=== PATIENT | male | born 1955 | race African-American/Black ===

== ENCOUNTER 2016-11-15 13:01 | Inpatient (IN) | payer OTHER ==
[~2016-11-15] VITALS: Ht 170.1 cm; Wt 77.3 kg
--- NOTE | ~2016-11-15 | CON ---
[place], [place] REPORT OF CONSULTATION NAME: [facility]ER [facility]Z [id number] UNIT #: [id number] ROOM: 403 DOCTOR: TOM NATH MD BIRTHDATE: [birth year] DOS: 11/15/2016 CARDIOLOGY CONSULTATION REASON FOR CONSULTATION: Atypical chest pain. HISTORY OF PRESENT ILLNESS: The patient is a 61-year-old man who has not had much medical care recently. He states that he has had some "bad interactions" with doctors. He does admit that he has a psychiatric doctor, although he did not give me the name. The patient states that for the last 3-4 months, he has had elevated blood pressure. He states that his blood pressure is anywhere from 140-180 when it is measured. He has never actually been diagnosed as having hypertension and has not received any treatment for it. The patient states that he is not sure if he has ever had heart disease since he does not know "what it feels like." He does not know if he has ever had a stroke for similar reasons. His only medication is diazepam. The patient states that lately he has had what he refers to as "air burst" which he describes as a pressure pain in his shoulder, left arm and neck. This comes without warning, lasts several minutes and then resolves spontaneously. When this happens, his arm feels numb and he is unable to hold things in his left hand. It is not associated with diaphoresis, dyspnea, lightheadedness, syncope, or chest pain. He also describes episodes of heaviness and tightness in his left chest. Once again, these come without warning and resolves spontaneously. They are not associated with pleuritic chest pain, dyspnea or diaphoresis. They resolves spontaneously. The patient states that his symptoms became too severe for him to stand and therefore he came to Emergency Room today. He has had several episodes in the Emergency Room, but not has been persistent. His electrocardiogram and first set of cardiac biomarkers are all normal. PAST MEDICAL HISTORY: Include anxiety, marijuana abuse and tobacco abuse. His only surgery was a right inguinal hernia repair. REVIEW OF SYSTEMS: The patient denies diplopia or loss of vision. He does admit to focal left arm weakness when he has the pain. Between pains, his arm is normally strong. He denies any lightheadedness or syncope. He denies orthopnea or PND. He denies fevers or chills. He does have a chronic cough and states that his chest hurts more when he is coughing. He denies any productive cough, hemoptysis or hematemesis. He denies nausea or vomiting. He denies change in bowel or bladder habits. He denies blood in his stools or urine. He denies heat or cold intolerance. He denies polydipsia or polyuria. He denies any hot or swollen joints. He denies any new skin rashes. The remainder of the review of systems is negative except as noted above. FAMILY HISTORY: The patient's father was estranged, the patient believes he of a lung problem. His mother after she was hit by a train. The [place], [place] REPORT OF CONSULTATION NAME: PETER PEREZ UNIT #: [id number] ROOM: [facility] DOCTOR: TOM NATH MD BIRTHDATE: [birth year] patient has several half brothers and sisters and does not think that any of them has any illnesses. SOCIAL HISTORY: The patient does not drink alcohol. He smokes 1-1/2 to 2 packs of cigarettes a day. He uses marijuana on a daily basis. CURRENT MEDICATIONS: Diazepam p.r.n. ALLERGIES: He lists allergies to no medications or foods. PHYSICAL EXAMINATION: GENERAL: The patient is a slender -[place] man who looks much older than his stated age. VITAL SIGNS: Pulse is 62 and regular, blood pressure was 148/94. He was afebrile. He weighed 77.3 kg and had a body mass index 26.7. HEENT: Head is normocephalic, atraumatic. Extraocular muscles are intact. Sclerae are clear. Pupils are equal, round and reactive to light. The oral mucosa is moist. Tongue is midline. NECK: Supple. He has no jugular distention. Carotids are full. I heard no bruits. He had no neck or supraclavicular masses and no thyromegaly. LUNGS: Respirations are unlabored. His chest is clear to auscultation and percussion. He has no presacral edema or chest wall masses. His left anterior chest is tender to palpation, but this does not reproduce his presenting chest pains. CARDIOVASCULAR: The patient's heart has a regular rhythm with a soft S4 gallop, but no S3 or murmur. The PMI is not displaced. There is no precordial heave, lift or thrill. ABDOMEN: Soft and normally active without masses, organomegaly or bruits. EXTREMITIES: Showed no clubbing, cyanosis or edema. Peripheral pulses are diminished in the feet. Pulses are normal in the arms. LABORATORY DATA: I reviewed his electrocardiogram, which showed sinus rhythm with possible left atrial enlargement, but was otherwise normal tracing. Initial cardiac biomarkers were normal. Hemoglobin is 15.6 with hematocrit of 46.9, there are 5900 white cells and 204,000 platelets. IMPRESSION: 1. Atypical chest pain. The patient describes several different kinds of chest pain which seemed to be mechanical in origin. His left anterior chest is tender to palpation. The pains are fairly brief and are not exertional. On the other hand, he does have risk factors including a heavy cigarette history. 2. Tobacco and marijuana abuse. 3. Elevated blood pressure. PLAN: The patient has been admitted to a telemetry monitored unit. We will follow serial CKs and MBs along with his troponins. We will keep him on a financial services director overnight. If he has no objective evidence for coronary ischemia, we will plan on an exercise myocardial perfusion study within the next 24 hours. In addition, we will order an echocardiogram to assess end-organ damage from his hypertension. Once this information has been collected, we will [place], [place] REPORT OF CONSULTATION NAME: PETER PEREZ UNIT #: [id number] ROOM: 403 DOCTOR: TOM NATH MD BIRTHDATE: [birth year] probably treat him with a low-dose diuretic or CLARISSA inhibitor. We thank the hospitalist physicians for asking our advice regarding his care. TOM NATH MD CM:CONSTR:REPORT OF CONSULTATION 1731 11/16/16 1238 interface
--- NOTE | ~2016-11-15 | ST ---
[place], [place] EXERCISE STRESS TEST REPORT NAME: [id number] UNIT #: [id number] ROOM: 403 DOCTOR: TOM NATH MD BIRTHDATE: [birth year] DOS: 11/16/2016 INDICATIONS: Left arm pain and atypical chest pain. PROCEDURE: The patient was given a rapid infusion of regadenoson 0.4 mg intravenously followed by a saline flush. He described an odd sensation throughout his entire body. His resting electrocardiogram showed sinus rhythm with poor precordial R-wave progression and anterior T-wave inversion. No further changes occurred with the infusion. His resting heart rate of 58 amarilys to 101. The resting blood pressure of 144/86 fell to 136/90. After the infusion of regadenoson, he was given radionuclide intravenously. IMPRESSION: 1. Well tolerated infusion of regadenoson. 2. Radionuclide administered. Please see the separately dictated imaging report for further details of the patient's stress test results. TOM NATH MD CM:STRESS:EXERCISE STRESS TEST REPORT [id number] TOM NATH MD
--- NOTE | ~2016-11-15 | PR ---
[place], [place] PROGRESS NOTE NAME: PETER PEREZ UNIT #: [id number] ROOM: 403 DOCTOR: TOM NATH MD BIRTHDATE: [birth year] DOS: 11/16/2016 CARDIOLOGY PROGRESS NOTE SUBJECTIVE: The patient was seen at the Cardiology Department just prior to his pharmacologic stress test. When he arrived in the department, he seemed a bit unsteady on his feet. In order to maximize the patient's safety, his stress test is being changed from a walking test to a pharmacologic stress test. He still has the same arm pain that he described to me when I saw him last evening. PHYSICAL EXAMINATION: On exam today, VITAL SIGNS: His pulse is 58 and regular, blood pressure is 144/86. NECK: Supple. CHEST: Respirations are unlabored. Chest is clear to auscultation and percussion. HEART: Heart has a regular rhythm with a fourth heart sound, but no third heart sound. EXTREMITIES: Showed no edema. His electrocardiogram today shows sinus rhythm with poor precordial R-wave progression, but is otherwise normal tracing. CBC is normal. Electrolytes are unremarkable. Hemoglobin A1c is normal at 5.0. TSH is normal. Cardiac biomarkers are negative. IMPRESSION: 1. Atypical chest pain. Thus far, the patient has no objective signs of coronary artery disease. 2. History of tobacco and marijuana abuse. 3. Elevated blood pressure. PLAN: We will proceed with a pharmacologic stress test today. Further recommendations will depend upon the results of the stress test. We thank the hospitalist group for asking our advice regarding his care. [place], [place] PROGRESS NOTE NAME: PETER PEREZ UNIT #: [id number] ROOM: 403 DOCTOR: TOM NATH MD BIRTHDATE: [birth year] TOM NATH MD CM:PNTRANS [id number] 0051 TOM NATH MD 11/17/16 0050 interface
[~2016-11-15 13:01] MED LIST: CLEOCIN150 MG PO; HYDROCODONE BIT1 T11 PO
[2016-11-15 13:08] VITALS: BP 190/110
[2016-11-15] MEDS ORDERED: VALIUM5 MG PO (13:08)
[2016-11-15 13:39] LABS: BASO % 0.7 % (0.0-1.0); EOS # 0.1 10*3/uL (0.0-0.4); EOS % 1.4 % (1.0-4.0); HEMATOCRIT 46.9 % (42.0-52.0); HEMOGLOBIN 15.6 g/dl (14.0-18.0); LYMPH # 2.5 10*3/uL (1.3-4.4); LYMPH % 42.6 % (27.0-41.0); MEAN CELL VOLUME 98.5 fl (80.0-94.0); MEAN CORPUSCULAR HGB 32.8 pg (27.0-31.0); MEAN CORPUSCULAR HGB CONC 33.3 g/dl (33.0-37.0); MEAN PLATELET VOLUME 10.7 fl (9.6-12.3); MONO # 0.5 10*3/uL (0.1-1.0); MONO % 8.7 % (3.0-9.0); NEUT # 2.7 10*3/uL (2.3-7.9); NEUT % 46.4 % (47.0-73.0); PLATELET COUNT AUTOMATED 204 10*3/uL (130-400); RED BLOOD COUNT 4.76 10*6/uL (4.50-5.90); WHITE BLOOD COUNT 5.9 10*3/uL (4.8-10.8)
[2016-11-15 13:43] VITALS: BP 147/104
[2016-11-15 13:48] LABS: PROTHROMBIN TIME 10.3 SECONDS (9.0-12.4)
[2016-11-15 13:57] LABS: ALKALINE PHOSPHATASE 68 U/L (45-117); BILIRUBIN, TOTAL 0.6 mg/dl (0.2-1.0); BUN 13 mg/dl (7-24); CARBON DIOXIDE 25 mmol/L (21-32); CHLORIDE 108 mmol/L (98-107); EST GLOM FILT AFRICAN AMERICAN > 60 ml/min; GLUCOSE 129 mg/dL (65-99); MAGNESIUM 2.1 mg/dL (1.5-2.1); POTASSIUM 3.5 mmol/L (3.5-5.1); SGOT/AST 15 IU/L (3-35); SGPT/ALT 22 U/L (12-78); SODIUM 144 mmol/L (136-145)
[2016-11-15 14:03] LABS: TROPONIN I < 0.015 ng/ml (<0.5)
[2016-11-15 14:32] VITALS: BP 158/103
[2016-11-15 15:47] VITALS: BP 146/103
[2016-11-15 16:15] VITALS: BP 148/94
[2016-11-15 20:00] VITALS: BP 151/98
[2016-11-16] VITALS: BP 148/90; BP 151/94
[2016-11-16] MEDS ORDERED: DIAZEPAM5 MG PO (03:49)
[2016-11-16] MEDS ORDERED: SERTRALINE HYD100 MG PO (03:50)
[2016-11-16] MEDS ORDERED: HYDROXYZINE PAM25 MG PO (03:51)
[2016-11-16] MEDS ORDERED: ARIPIPRAZOLE20 MG PO (03:51)
[2016-11-16] MEDS ORDERED: CLONIDINE HCL0.2 MG PO (03:52)
[2016-11-16 06:44] LABS: BASO % 0.4 % (0.0-1.0); EOS # 0.1 10*3/uL (0.0-0.4); EOS % 2.3 % (1.0-4.0); HEMATOCRIT 47.9 % (42.0-52.0); HEMOGLOBIN 15.8 g/dl (14.0-18.0); LYMPH % 41.6 % (27.0-41.0); MEAN CORPUSCULAR HGB 32.6 pg (27.0-31.0); MEAN PLATELET VOLUME 10.2 fl (9.6-12.3); MONO # 0.5 10*3/uL (0.1-1.0); MONO % 9.5 % (3.0-9.0); NEUT # 2.2 10*3/uL (2.3-7.9); PLATELET COUNT AUTOMATED 200 10*3/uL (130-400); RED BLOOD COUNT 4.84 10*6/uL (4.50-5.90); RED CELL DISTRI WIDTH 11.9 % (0-14.5); WHITE BLOOD COUNT 4.8 10*3/uL (4.8-10.8)
[2016-11-16 07:30] LABS: FOLIC ACID 7.47 ng/mL (>5.38)
[2016-11-16 07:31] LABS: BUN 13 mg/dl (7-24); CARBON DIOXIDE 29 mmol/L (21-32); CHLORIDE 107 mmol/L (98-107); CHOLESTEROL 211 mg/dL (<200); EST GLOM FILT AFRICAN AMERICAN > 60 ml/min; FREE T4 1.13 ng/dl (0.76-1.46); GLUCOSE 85 mg/dL (65-99); HDL CHOLESTEROL 33 mg/dl (40-60); LDL CHOLESTEROL 139 mg/dL (9-159); POTASSIUM 3.8 mmol/L (3.5-5.1); SODIUM 143 mmol/L (136-145); THYROID STIM HORMONE (HS) 0.541 uIU/ml (0.358-4.75); TRIGLYCERIDES 196 mg/dl (<150); VLDL CHOLESTEROL 39 mg/dL (6-40)
[2016-11-16 08:00] VITALS: BP 130/80; BP 130/92
[2016-11-16 11:30] VITALS: BP 126/82
[2016-11-16 16:00] VITALS: BP 154/106
[2016-11-16] MEDS ORDERED: ZESTRIL10 MG PO (17:50)
== END 2016-11-16 18:45 | disposition home or self-care (01) | DRG 305 ==
LOC: ED 13:01 → EDHOLD 15:15 → 4E 15:15
PROVIDERS: Internal Medicine Hospice and Palliative Medicine; Student in an Organized Health Care Education/Training Program
DX: I16.1 Hypertensive emergency (principal); D75.89 Other specified diseases of blood and blood-forming organs; R07.89 Other chest pain; I10 Essential (primary) hypertension; R73.9 Hyperglycemia, unspecified; F41.9 Anxiety disorder, unspecified; F17.210 Nicotine dependence, cigarettes, uncomplicated; F12.10 Cannabis abuse, uncomplicated; Z79.899 Other long term (current) drug therapy; Z83.6 Family history of other diseases of the respiratory system; Z91.040 Latex allergy status; Z98.890 Other specified postprocedural states

== ENCOUNTER 2017-03-08 14:55 | Emergency (ER) | payer OTHER ==
[~2017-03-08] VITALS: Wt 76.2 kg
[~2017-03-08 14:55] MED LIST changes: +ARIPIPRAZOLE20 MG PO; +CLONIDINE HCL0.2 MG PO; +DIAZEPAM5 MG PO; +HYDROXYZINE PAM25 MG PO; +SERTRALINE HYD100 MG PO; +VALIUM5 MG PO; +ZESTRIL10 MG PO
[2017-03-08] MEDS ORDERED: CLONIDINE HCL0.2 MG PO (14:57)
[2017-03-08 15:13] VITALS: BP 110/70
== END 2017-03-08 15:31 | disposition left against medical advice (07) ==
LOC: ED 14:55 → EDSTATUS 14:55 → ED 15:31
DX: R03.0 Elevated blood-pressure reading, without diagnosis of hypertension (principal); F17.200 Nicotine dependence, unspecified, uncomplicated; F12.10 Cannabis abuse, uncomplicated

== ENCOUNTER 2017-07-14 11:56 | Emergency (ER) | payer OTHER ==
[~2017-07-14] VITALS: Ht 165.1 cm; Wt 68.0 kg
[2017-07-14 12:14] VITALS: BP 154/107
[2017-07-14] MEDS ORDERED: CYCLOBENZAPRINE5 M3 PO (14:21)
[2017-07-14] MEDS ORDERED: IBU800 MG PO (14:21)
== END 2017-07-14 14:42 | disposition home or self-care (01) ==
LOC: ED 11:56
DX: S49.91XA Unspecified injury of right shoulder and upper arm, initial encounter (principal); F17.200 Nicotine dependence, unspecified, uncomplicated; Z79.899 Other long term (current) drug therapy; W11.XXXA Fall on and from ladder, initial encounter; Y93.89 Activity, other specified; Y92.89 Other specified places as the place of occurrence of the external cause; Y99.8 Other external cause status

== ENCOUNTER 2020-05-06 16:11 | Emergency (ER) | payer OTHER ==
[~2020-05-06] VITALS: Ht 170.1 cm; Wt 77.1 kg
[~2020-05-06 16:11] MED LIST changes: +CYCLOBENZAPRINE5 M3 PO; +IBU800 MG PO
[2020-05-06] MEDS ORDERED: ZESTRIL10 MG PO (16:42)
[2020-05-06 17:03] VITALS: BP 164/108
== END 2020-05-06 17:15 | disposition home or self-care (01) ==
LOC: ED 16:11
DX: I10 Essential (primary) hypertension (principal); F17.200 Nicotine dependence, unspecified, uncomplicated; Z91.14 Patient's other noncompliance with medication regimen; Z79.899 Other long term (current) drug therapy

== ENCOUNTER → 2020-05-22 | Outpatient (CLI) | payer OTHER | END | disposition home or self-care (01) | LOC: RESCLI 03:18 | DX: Z13.220 Encounter for screening for lipoid disorders (principal); Z13.29 Encounter for screening for other suspected endocrine disorder; Z12.11 Encounter for screening for malignant neoplasm of colon; R20.2 Paresthesia of skin; R42 Dizziness and giddiness; I10 Essential (primary) hypertension ==

== ENCOUNTER → 2020-10-14 | Outpatient (CLI) | payer OTHER ==
[2020-10-14 09:25] LABS: HEMATOCRIT 44.1 % (42.0-52.0); MEAN CELL VOLUME 101.8 fl (80.0-94.0); MEAN CORPUSCULAR HGB 32.8 pg (27.0-31.0); MEAN CORPUSCULAR HGB CONC 32.2 g/dl (33.0-37.0); MEAN PLATELET VOLUME 10.5 fl (9.6-12.3); RED BLOOD COUNT 4.33 10*6/uL (4.50-5.90); WHITE BLOOD COUNT 6.3 10*3/uL (4.8-10.8)
[2020-10-14 09:59] LABS: CHLORIDE 108 mmol/L (98-107); SODIUM 140 mmol/L (136-145)
[2020-10-14 10:08] LABS: ALBUMIN 3.7 gm/dl (3.1-4.5); ALKALINE PHOSPHATASE 71 U/L (45-117); BUN 11 mg/dl (7-24); CHOLESTEROL 192 mg/dL (<200); CREATININE 1.04 mg/dL (0.70-1.30); HDL CHOLESTEROL 44 mg/dl (40-60); LDL CHOLESTEROL 117 mg/dL (9-159); SGOT/AST 15 IU/L (3-35); SGPT/ALT 18 U/L (12-78); TOTAL PROTEIN 7.6 gm/dL (6.4-8.2); TRIGLYCERIDES 154 mg/dl (<150); VLDL CHOLESTEROL 31 mg/dL (6-40)
== END | disposition home or self-care (01) ==
LOC: LAB 08:41
PROVIDERS: ATTEND Nurse Practitioner Family
DX: M43.16 Spondylolisthesis, lumbar region (principal); M47.816 Spondylosis without myelopathy or radiculopathy, lumbar region; M47.817 Spondylosis without myelopathy or radiculopathy, lumbosacral region; M48.061 Spinal stenosis, lumbar region without neurogenic claudication; J44.9 Chronic obstructive pulmonary disease, unspecified; I10 Essential (primary) hypertension; Z12.5 Encounter for screening for malignant neoplasm of prostate; Z13.220 Encounter for screening for lipoid disorders

== ENCOUNTER → 2020-11-08 | Outpatient (CLI) | payer OTHER | END | disposition home or self-care (01) | LOC: CT 10:00 | PROVIDERS: ATTEND Family Medicine | DX: J44.9 Chronic obstructive pulmonary disease, unspecified (principal); R06.02 Shortness of breath; R63.4 Abnormal weight loss; F17.210 Nicotine dependence, cigarettes, uncomplicated ==

== ENCOUNTER → 2024-01-14 | Outpatient (CLI) | payer OTHER ==
[2024-01-14 09:24] LABS: HEMATOCRIT 43.2 % (42.0-52.0); MEAN CELL VOLUME 100.9 fl (80.0-94.0); MEAN CORPUSCULAR HGB 33.2 pg (27.0-31.0); MEAN CORPUSCULAR HGB CONC 32.9 g/dl (33.0-37.0); MEAN PLATELET VOLUME 9.9 fl (9.6-12.3); RED BLOOD COUNT 4.28 10*6/uL (4.50-5.90); RED CELL DISTRI WIDTH 12.1 % (0-14.5)
[2024-01-14 09:52] LABS: ALKALINE PHOSPHATASE 70 U/L (46-116); BUN 12 mg/dl (9-23); CHLORIDE 105 mmol/L (98-107); CHOLESTEROL 156 mg/dL (<200); LDL CHOLESTEROL 103 mg/dL (9-159); POTASSIUM 3.7 mmol/L (3.4-5.1); SGPT/ALT 11 U/L (5-49); TOTAL PROTEIN 7.7 gm/dL (6.0-8.0); TRIGLYCERIDES 86 mg/dl (<150)
[2024-01-14 10:43] LABS: VITAMIN D, 25-HYDROXY 8.2 ng/mL (30-100)
== END | disposition home or self-care (01) ==
LOC: LAB 09:02
PROVIDERS: ATTEND Family Medicine
DX: Z12.5 Encounter for screening for malignant neoplasm of prostate (principal); Q25.46 Tortuous aortic arch; E78.00 Pure hypercholesterolemia, unspecified; E55.9 Vitamin D deficiency, unspecified

== ENCOUNTER → 2024-03-15 | Outpatient (CLI) | payer OTHER | END | disposition home or self-care (01) | LOC: CARD 08:40 | PROVIDERS: ATTEND Family Medicine | DX: R00.1 Bradycardia, unspecified (principal); I71.23 Aneurysm of the descending thoracic aorta, without rupture ==

== ENCOUNTER → 2024-04-04 | Outpatient (CLI) | payer OTHER ==
[~2024-04-04] MED LIST changes: +AMLODIPINE BESY10 MG PO; +MEDROL DOSEPAK4 MG PO; +VITAMIN D310 MC1 PO
== END ==
LOC: LAB 09:25
PROVIDERS: ATTEND Family Medicine
DX: Z12.5 Encounter for screening for malignant neoplasm of prostate (principal)